=== PATIENT | male | born 1945 | race African-American/Black ===

== ENCOUNTER 2019-06-22 19:51 | Inpatient (IN) | payer MEDICARE, OTHER ==
[~2019-06-22] VITALS: Ht 182.9 cm; Wt 62.7 kg
[2019-06-22] MEDS ORDERED: ONDANSETRON HCL 4MG/2ML INJ IV STA (20:02)
[2019-06-22] MEDS ORDERED: SODIUM CHLORIDE 0.9% 1,000 ML IV ONE (20:02)
[2019-06-22] MEDS ORDERED: PIPERACILLIN/TAZ 3.375G PREMIX 50 ML IV ONE (20:15)
[2019-06-22 20:58] LABS: CLARITY URINE TURBID (CLEAR); KETONES URINE TRACE (NEGATIVE); LEUKOCYTE ESTERASE URINE 3+ (NEGATIVE); NITRITE URINE NEGATIVE (NEGATIVE); OCCULT BLOOD URINE 3+ (NEGATIVE); PROTEIN URINE 2+ (NEGATIVE); SPECIFIC GRAVITY URINE 1.013 (1.005-1.030)
[2019-06-22 20:59] LABS: COLOR URINE DARK YELLOW (YELLOW)
[2019-06-22] MEDS ORDERED: NOREPINEPHRINE 4 MG in DEXT 5% WATER 246 ML IV ONE (21:15)
[2019-06-22] MEDS ORDERED: NOREPINEPHRINE 4MG/250ML PMX 250 ML IV NR (21:30)
[2019-06-22 23:07] LABS: HEMATOCRIT. 39.1 % (42.0-52.0); HEMOGLOBIN. 13.1 g/dL (14.0-18.0); MEAN CORPUSCULAR HEMOGLOBIN 31.1 pg (28.0-32.0); MEAN CORPUSCULAR VOLUME 92.8 fL (80.0-94.0); MEAN PLATELET VOLUME 10.8 fl (7.4-10.4); RED BLOOD CELL COUNT 4.21 mill/uL (4.7-6.1); RED CELL DISTRIBUTION WIDTH 16.2 % (11.6-14.6)
[2019-06-22 23:14] LABS: CHLORIDE 105 mEq/L (98-107)
[2019-06-22 23:15] LABS: INR 1.2; PLATELET 45 x1000/uL (130-400); PROTHROMBIN TIME 12.4 sec (9.6-11.0)
[2019-06-22 23:29] LABS: PLATELET ESTIMATE MARKEDLY DECREASED
[2019-06-23] VITALS (81 sets, daily range): BP systolic 63–157; BP diastolic 19–124
[2019-06-23] MEDS ORDERED: ASPIRIN 325MG TABLET PO NR
[2019-06-23] MEDS ORDERED: SODIUM CHLORIDE 0.9% 250 ML IV ONE (00:15)
[2019-06-23] MEDS ORDERED: SODIUM CHLORIDE 0.9% 1,000 ML IV ONE (00:15)
[2019-06-23] MEDS ORDERED: NOREPINEPHRINE 8 MG in DEXT 5% WATER 242 ML IV PRN (03:30)
[2019-06-23] MEDS ORDERED: ACETAMINOPHEN 325MG TABLET PO PRN (03:30)
[2019-06-23] MEDS: SODIUM CHLORIDE 0.9% 1,000 ML IV SCH ×3 (04:44→21:00)
[2019-06-23 05:16] LABS: HEMATOCRIT. 37.3 % (42.0-52.0); HEMOGLOBIN. 12.5 g/dL (14.0-18.0); MEAN CORPUSCULAR HEMOGLOBIN 31.2 pg (28.0-32.0); MEAN CORPUSCULAR VOLUME 92.8 fL (80.0-94.0); MEAN PLATELET VOLUME 11.2 fl (7.4-10.4); RED BLOOD CELL COUNT 4.01 mill/uL (4.7-6.1); RED CELL DISTRIBUTION WIDTH 16.3 % (11.6-14.6)
[2019-06-23 05:32] LABS: PLATELET 40 x1000/uL (130-400)
[2019-06-23] MEDS: PIPERACILLIN/TAZOBACTAM 2.25 G in DEXTROSE 5% WATER 50 ML IV SCH ×3 (05:59→21:34)
[2019-06-23] MEDS ORDERED: PIPERACILLIN/TAZOBACTAM 2.25 G in DEXTROSE 5% WATER 50 ML IV SCH (06:00)
[2019-06-23 11:08] LABS: BG BASE EXCESS -7.9 mmol/L (-2.0-2.0); BG CARBOXYHEMOGLOBIN 0.5 % (0.5-1.5); BG DEOXYHEMOGLOBIN 6.5 % (0.0-5.0); BG FRACTION INSPIRED OXYGEN 21; BG HCO3 ACT 16.6 mmol/L (22.0-26.0); BG METHEMOGLOBIN 0.4 % (0.0-1.5); BG OXYGEN SATURATION 93.4 % (92.0-98.5); BG OXYHEMOGLOBIN 92.6 % (94.0-97.0); BG PCO2 31.4 mmHg (35.0-45.0); BG PH 7.342 (7.350-7.450); BG PO2 69.9 mmHg (75.0-100.0); BG SAMPLE SITE RIGHT BRACHIAL; BG TOTAL HEMOGLOBIN 12.9 g/dL (12.0-18.0); BG VENT MODE ROOM AIR
[2019-06-23] MEDS: PHENYLEPHRINE 40 MG in DEXT 5% WATER 246 ML IV PRN ×2 (11:29→18:12)
[2019-06-23] MEDS ORDERED: VANCOMYCIN 1500MG in DEXTROSE 5% WATER 250ML IV NR (11:30)
[2019-06-23 12:30] LABS: T4 FREE 1.11 ng/dL (0.76-1.46)
[2019-06-23 12:46] LABS: HEPATITIS B SURFACE ANTIGEN NEGATIVE
[2019-06-23 13:16] LABS: HEPATITIS A AB IGM NEGATIVE (NEGATIVE)
[2019-06-23 16:10] LABS: PLATELET ESTIMATE MARKEDLY DECREASED
[2019-06-23 17:59] LABS: D-DIMER 12.91 mg/L FEU (<0.50)
[2019-06-23] MEDS: CITRIC ACID/SODIUM CITRATE SOLN 15ML UDC PO SCH (18:11)
[2019-06-24] VITALS (98 sets, daily range): BP systolic 59–187; BP diastolic 26–117
[2019-06-24] MEDS: SODIUM CHLORIDE 0.9% 1,000 ML IV SCH ×3 (01:13→20:31)
[2019-06-24] MEDS: PHENYLEPHRINE 40 MG in DEXT 5% WATER 246 ML IV PRN ×2 (03:27→17:15)
[2019-06-24 05:03] LABS: HEMATOCRIT. 36.1 % (42.0-52.0); HEMOGLOBIN. 12.3 g/dL (14.0-18.0); MEAN CORPUSCULAR HEMOGLOBIN 31.1 pg (28.0-32.0); MEAN CORPUSCULAR VOLUME 91.4 fL (80.0-94.0); MEAN PLATELET VOLUME 11.4 fl (7.4-10.4); RED BLOOD CELL COUNT 3.95 mill/uL (4.7-6.1); RED CELL DISTRIBUTION WIDTH 16.6 % (11.6-14.6)
[2019-06-24 05:06] LABS: PLATELET 26 x1000/uL (130-400)
[2019-06-24] MEDS: PIPERACILLIN/TAZOBACTAM 2.25 G in DEXTROSE 5% WATER 50 ML IV SCH ×3 (05:38→21:40)
[2019-06-24 06:10] LABS: CREATINE KINASE MB FRACTION 11.4 ng/mL (0.5-3.6)
[2019-06-24 07:23] LABS: NUCLEATED RED BLOOD CELLS 1 /100 WBC
[2019-06-24 07:24] LABS: PLATELET ESTIMATE MARKEDLY DECREASED
[2019-06-24 08:08] LABS: HIV SCREEN 4G Non Reactive (Non Reactive)
[2019-06-24] MEDS: CITRIC ACID/SODIUM CITRATE SOLN 15ML UDC PO SCH ×3 (10:06→17:14)
[2019-06-24 12:55] LABS: CREATINE KINASE 2981 IU/L (39-308)
[2019-06-24] MEDS ORDERED: VANCOMYCIN 1 G PREMIX 200 ML IV SCH (13:00)
[2019-06-24 13:07] LABS: ANTI-NUCLEAR ANTIBODIES DIRECT Negative (Negative)
[2019-06-24] MEDS: MIDODRINE HCL 5MG TABLET PO SCH ×2 (15:36→17:14)
[2019-06-25] VITALS (93 sets, daily range): BP systolic 80–154; BP diastolic 23–100
[2019-06-25] MEDS: PHENYLEPHRINE 40 MG in DEXT 5% WATER 246 ML IV PRN (02:51)
[2019-06-25 05:09] LABS: BASOPHILS % 0.1 % (0.0-2.0); EOSINOPHILS % 1.8 % (0.0-5.0); HEMATOCRIT. 35.1 % (42.0-52.0); HEMOGLOBIN. 11.8 g/dL (14.0-18.0); LYMPHOCYTES % 8.8 % (20.0-50.0); MEAN CORPUSCULAR HEMOGLOBIN 31.1 pg (28.0-32.0); MEAN CORPUSCULAR VOLUME 92.1 fL (80.0-94.0); MEAN PLATELET VOLUME 11.5 fl (7.4-10.4); MONOCYTES % 4.7 % (2.0-8.0); NEUTROPHILS % 84.6 % (40.0-76.0); RED BLOOD CELL COUNT 3.81 mill/uL (4.7-6.1); RED CELL DISTRIBUTION WIDTH 16.8 % (11.6-14.6)
[2019-06-25] MEDS: PIPERACILLIN/TAZOBACTAM 2.25 G in DEXTROSE 5% WATER 50 ML IV SCH ×2 (05:21→13:00)
[2019-06-25] MEDS: SODIUM CHLORIDE 0.9% 1,000 ML IV SCH ×3 (05:21→22:26)
[2019-06-25 05:29] LABS: PHOSPHORUS 2.8 mg/dL (2.5-4.9)
[2019-06-25 05:53] LABS: PLATELET 28 x1000/uL (130-400)
[2019-06-25] MEDS: CITRIC ACID/SODIUM CITRATE SOLN 15ML UDC PO SCH ×3 (08:28→16:46)
[2019-06-25] MEDS: MIDODRINE HCL 5MG TABLET PO SCH ×3 (08:28→16:47)
[2019-06-25 10:06] LABS: COMPLEMENT C3 66 mg/dL (82-167)
[2019-06-25] MEDS: CEFAZOLIN 2,000 MG in DEXT 5% WATER 100 ML IV SCH (19:51)
[2019-06-26] VITALS (69 sets, daily range): BP systolic 78–139; BP diastolic 35–95
[2019-06-26] MEDS: SODIUM CHLORIDE 0.9% 1,000 ML IV SCH (04:59)
[2019-06-26 05:49] LABS: BASOPHILS % 0.1 % (0.0-2.0); EOSINOPHILS % 1.5 % (0.0-5.0); HEMATOCRIT. 33.9 % (42.0-52.0); HEMOGLOBIN. 11.4 g/dL (14.0-18.0); LYMPHOCYTES % 9.4 % (20.0-50.0); MEAN PLATELET VOLUME 11.1 fl (7.4-10.4); MONOCYTES % 3.7 % (2.0-8.0); NEUTROPHILS % 85.3 % (40.0-76.0); RED BLOOD CELL COUNT 3.69 mill/uL (4.7-6.1)
[2019-06-26 06:10] LABS: PLATELET 46 x1000/uL (130-400)
[2019-06-26] MEDS: CEFAZOLIN 2,000 MG in DEXT 5% WATER 100 ML IV SCH ×2 (09:47→19:46)
[2019-06-26] MEDS: MIDODRINE HCL 5MG TABLET PO SCH ×3 (09:47→18:02)
[2019-06-26] MEDS: DEXTROSE 5% WATER 1,000 ML IV SCH (09:48)
[2019-06-27] VITALS (18 sets, daily range): BP systolic 80–130; BP diastolic 42–70
[2019-06-27] MEDS: DEXTROSE 5% WATER 1,000 ML IV SCH (04:00)
[2019-06-27 05:45] LABS: BASOPHILS % 0.2 % (0.0-2.0); EOSINOPHILS % 2.1 % (0.0-5.0); HEMATOCRIT. 33.9 % (42.0-52.0); HEMOGLOBIN. 11.4 g/dL (14.0-18.0); LYMPHOCYTES % 10.8 % (20.0-50.0); MEAN CORPUSCULAR VOLUME 92.5 fL (80.0-94.0); MEAN PLATELET VOLUME 11.2 fl (7.4-10.4); MONOCYTES % 4.2 % (2.0-8.0); NEUTROPHILS % 82.7 % (40.0-76.0); PLATELET 68 x1000/uL (130-400); RED BLOOD CELL COUNT 3.67 mill/uL (4.7-6.1); RED CELL DISTRIBUTION WIDTH 16.4 % (11.6-14.6)
[2019-06-27] MEDS: CEFAZOLIN 2,000 MG in DEXT 5% WATER 100 ML IV SCH (09:30)
[2019-06-27] MEDS: MIDODRINE HCL 5MG TABLET PO SCH ×2 (09:48→13:33)
== END 2019-06-27 19:45 | disposition home health service (06) | DRG 871 ==
LOC: ER 19:51 → EDBEDREQ 23:43 → EDBEDREQTM 23:43 → EDBEDREQSVC 23:43 → ENRESERV 06-23 01:54 → MICUNO 06-23 02:33 → 5EST 06-27 05:40
PROVIDERS: ADMIT Internal Medicine; ATTEND Internal Medicine
DX: A41.51 Sepsis due to Escherichia coli [E. coli] (principal); G93.41 Metabolic encephalopathy; R65.21 Severe sepsis with septic shock; J96.00 Acute respiratory failure, unspecified whether with hypoxia or hypercapnia; I21.4 Non-ST elevation (NSTEMI) myocardial infarction; E43 Unspecified severe protein-calorie malnutrition; N17.0 Acute kidney failure with tubular necrosis; G82.50 Quadriplegia, unspecified; N39.0 Urinary tract infection, site not specified; I42.9 Cardiomyopathy, unspecified; Z68.1 Body mass index [BMI] 19.9 or less, adult; E87.0 Hyperosmolality and hypernatremia; E87.2 Acidosis; M62.82 Rhabdomyolysis; R47.01 Aphasia; D69.6 Thrombocytopenia, unspecified; R74.0 Nonspecific elevation of levels of transaminase and lactic acid dehydrogenase [LDH]; D64.9 Anemia, unspecified; E86.9 Volume depletion, unspecified; I95.1 Orthostatic hypotension; R13.10 Dysphagia, unspecified; N18.9 Chronic kidney disease, unspecified; I12.9 Hypertensive chronic kidney disease with stage 1 through stage 4 chronic kidney disease, or unspecified chronic kidney disease; R47.1 Dysarthria and anarthria; Z86.73 Personal history of transient ischemic attack (TIA), and cerebral infarction without residual deficits; Z99.3 Dependence on wheelchair
CPT/HCPCS: 36415; 36600; 71045; 76700; 80048; 80061; 80202; 81003; 82375; 82550; 82553; 82805; 82962; 83036; 83605; 83735; 83880; 84100; 84145; 84439; 84443; 84484; 85362; 85379; 85384; 86038; 86160; 86705; 86709; 86803; 87077; 87186; 87340; 87389; 92523; 92610; 93005; 93306; 93970; 96374; 97162; 99285; J0690; J2370; J2405; J2543; J3370; J3490; J7030; J7050; J7060; J7070

== ENCOUNTER 2019-07-03 00:07 | Inpatient (IN) | payer MEDICARE, MEDICAID ==
[~2019-07-03] VITALS: Ht 172.7 cm; Wt 67.8 kg
[2019-07-03] MEDS ORDERED: SODIUM CHLORIDE 0.9% 1000ML BAG (SEPSIS BOLUS) IV ONE (00:30)
[2019-07-03] MEDS ORDERED: CEFTRIAXONE 1 G PREMIX 50 ML IV ONE (00:30)
[2019-07-03 00:45] LABS: HEMATOCRIT. 28.1 % (42.0-52.0); HEMOGLOBIN. 9.5 g/dL (14.0-18.0); MEAN CORPUSCULAR HEMOGLOBIN 30.5 pg (28.0-32.0); MEAN CORPUSCULAR VOLUME 90.3 fL (80.0-94.0); MEAN PLATELET VOLUME 9.9 fl (7.4-10.4)
[2019-07-03 00:54] LABS: CHLORIDE 110 mEq/L (98-107)
[2019-07-03 01:08] LABS: INR 1.3; PROTHROMBIN TIME 13.3 sec (9.6-11.0)
[2019-07-03 01:23] LABS: CLARITY URINE CLEAR (CLEAR); COLOR URINE YELLOW (YELLOW); KETONES URINE NEGATIVE (NEGATIVE); LEUKOCYTE ESTERASE URINE 2+ (NEGATIVE); NITRITE URINE NEGATIVE (NEGATIVE); OCCULT BLOOD URINE 3+ (NEGATIVE); PH URINE 5.5 (4.5-8.0); PROTEIN URINE 1+ (NEGATIVE); UROBILINOGEN URINE 0.2 E.U./dL (0.2-1.0)
[2019-07-03 02:47] LABS: PLATELET ESTIMATE NORMAL
[2019-07-03 02:49] LABS: PLATELET 278 x1000/uL (130-400)
[2019-07-03] MEDS ORDERED: DEXT 5%/0.45% NACL 1000ML 1,000 ML IV SCH (14:42)
[2019-07-03] MEDS ORDERED: ONDANSETRON HCL 4MG/2ML INJ IV PRN (14:45)
[2019-07-03] MEDS ORDERED: CLONIDINE 0.1MG TABLET PO PRN (14:45)
[2019-07-03] MEDS ORDERED: HYDROCODONE/ACETAMINOPHEN 5/325MG TABLET PO PRN (14:45)
[2019-07-03] MEDS ORDERED: ACETAMINOPHEN 325MG TABLET PO PRN (14:45)
[2019-07-03] MEDS ORDERED: CEFTRIAXONE 1 G PREMIX 50 ML IV SCH (14:45)
[2019-07-03] MEDS ORDERED: GUAIFENESIN 200MG/10ML SUGAR FREE UDC PO PRN (14:45)
[2019-07-03] MEDS ORDERED: ENOXAPARIN 40MG/0.4ML SYR SUBCUT SCH ×2 (14:45→21:30)
[2019-07-03] MEDS ORDERED: DOCUSATE SODIUM 100MG CAPSULE PO PRN (14:45)
[2019-07-03] MEDS ORDERED: CITRIC ACID/SODIUM CITRATE SOLN 30ML UDC PO SCH (17:00)
[2019-07-03 17:08] LABS: BG BASE EXCESS -7.5 mmol/L (-2.0-2.0); BG CARBOXYHEMOGLOBIN 0.1 % (0.5-1.5); BG DEOXYHEMOGLOBIN 4.9 % (0.0-5.0); BG FRACTION INSPIRED OXYGEN 21; BG HCO3 ACT 16.4 mmol/L (22.0-26.0); BG METHEMOGLOBIN 0.3 % (0.0-1.5); BG OXYGEN SATURATION 95.1 % (92.0-98.5); BG OXYHEMOGLOBIN 94.7 % (94.0-97.0); BG PCO2 27.9 mmHg (35.0-45.0); BG PH 7.388 (7.350-7.450); BG PO2 82.3 mmHg (75.0-100.0); BG SAMPLE SITE RIGHT BRACHIAL; BG TOTAL HEMOGLOBIN 9.1 g/dL (12.0-18.0); BG VENT MODE ROOM AIR
[2019-07-03 22:00] VITALS: BP 102/51
[2019-07-04] VITALS: BP 101/49
[2019-07-04] MEDS ORDERED: VANCOMYCIN 1 G PREMIX 200 ML IV SCH
[2019-07-04] MEDS: CITRIC ACID/SODIUM CITRATE SOLN 30ML UDC PO SCH ×4 (00:30→17:19)
[2019-07-04] MEDS ORDERED: CEFTRIAXONE 1 G PREMIX 50 ML IV SCH (02:00)
[2019-07-04 04:00] VITALS: BP 116/59
[2019-07-04 07:24] LABS: BASOPHILS % 0.3 % (0.0-2.0); EOSINOPHILS % 1.7 % (0.0-5.0); HEMOGLOBIN. 9.1 g/dL (14.0-18.0); LYMPHOCYTES % 10.6 % (20.0-50.0); MEAN CORPUSCULAR HEMOGLOBIN 31.7 pg (28.0-32.0); MEAN CORPUSCULAR VOLUME 90.2 fL (80.0-94.0); NEUTROPHILS % 79.4 % (40.0-76.0); PLATELET 291 x1000/uL (130-400); RED BLOOD CELL COUNT 2.89 mill/uL (4.7-6.1); RED CELL DISTRIBUTION WIDTH 15.9 % (11.6-14.6)
[2019-07-04 07:53] LABS: CHLORIDE 121 mEq/L (98-107)
[2019-07-04 08:00] VITALS: BP 117/62
[2019-07-04 08:01] LABS: PHOSPHORUS 3.4 mg/dL (2.5-4.9)
[2019-07-04 08:03] LABS: CREATINE KINASE 562 IU/L (39-308)
[2019-07-04] MEDS: ASPIRIN 81MG EC TABLET PO SCH (08:51)
[2019-07-04] MEDS ORDERED: ASPIRIN 81MG EC TABLET PO SCH (09:00)
[2019-07-04] MEDS ORDERED: ENOXAPARIN 30MG/0.3ML SYR SUBCUT SCH (09:00)
[2019-07-04] MEDS ORDERED: ENOXAPARIN 40MG/0.4ML SYR SUBCUT NR (11:00)
[2019-07-04 12:00] VITALS: BP 112/57
[2019-07-04] MEDS ORDERED: VANCOMYCIN 750 MG PREMIX 150 ML IV SCH (15:00)
[2019-07-04 16:00] VITALS: BP 123/66
[2019-07-04] MEDS: DEXT 5%/0.2% NACL 1,000 ML IV SCH (17:20)
[2019-07-04 20:00] VITALS: BP 103/77
[2019-07-05] VITALS: BP 131/61
[2019-07-05] MEDS ORDERED: CEFTRIAXONE 1 G PREMIX 50 ML IV SCH (01:00)
[2019-07-05] MEDS: DEXT 5%/0.2% NACL 1,000 ML IV SCH ×2 (01:50→15:40)
[2019-07-05 04:00] VITALS: BP 151/67
[2019-07-05 06:43] LABS: BASOPHILS % 0.9 % (0.0-2.0); EOSINOPHILS % 1.8 % (0.0-5.0); HEMATOCRIT. 25.7 % (42.0-52.0); HEMOGLOBIN. 8.9 g/dL (14.0-18.0); LYMPHOCYTES % 18.7 % (20.0-50.0); MEAN CORPUSCULAR HEMOGLOBIN 31.5 pg (28.0-32.0); MEAN CORPUSCULAR VOLUME 90.9 fL (80.0-94.0); MEAN PLATELET VOLUME 9.8 fl (7.4-10.4); MONOCYTES % 9.1 % (2.0-8.0); NEUTROPHILS % 69.5 % (40.0-76.0); PLATELET 289 x1000/uL (130-400); RED BLOOD CELL COUNT 2.83 mill/uL (4.7-6.1); RED CELL DISTRIBUTION WIDTH 16.5 % (11.6-14.6)
[2019-07-05 08:00] VITALS: BP 154/69
[2019-07-05] MEDS: ASPIRIN 81MG EC TABLET PO SCH (09:36)
[2019-07-05] MEDS: CITRIC ACID/SODIUM CITRATE SOLN 30ML UDC PO SCH ×2 (09:36→14:02)
[2019-07-05 09:52] LABS: PHOSPHORUS 2.4 mg/dL (2.5-4.9)
[2019-07-05] MEDS ORDERED: ENOXAPARIN 80MG/0.8ML SYR SUBCUT SCH ×2 (11:00→22:00)
[2019-07-05] MEDS ORDERED: POTASSIUM PHOS,M-BASIC-D-BASIC 15 MMOL in DEXT 5% WATER 245 ML IV ONE (12:30)
[2019-07-05 15:22] VITALS: BP 113/65
[2019-07-05] MEDS ORDERED: VANCOMYCIN 1 G PREMIX 200 ML IV SCH (21:00)
== END 2019-07-05 16:40 | disposition home health service (06) | DRG 871 ==
LOC: ER 00:07 → 5WST 06:28 → EDBEDREQ 06:30 → EDBEDREQTM 06:30 → EDBEDREQSVC 06:30 → SUPCPDRO 14:41 → ENRESERV 20:24 → ER 21:20
PROVIDERS: ADMIT Internal Medicine; ATTEND Internal Medicine
DX: A41.9 Sepsis, unspecified organism (principal); E43 Unspecified severe protein-calorie malnutrition; J96.90 Respiratory failure, unspecified, unspecified whether with hypoxia or hypercapnia; I21.4 Non-ST elevation (NSTEMI) myocardial infarction; I13.0 Hypertensive heart and chronic kidney disease with heart failure and stage 1 through stage 4 chronic kidney disease, or unspecified chronic kidney disease; N13.8 Other obstructive and reflux uropathy; N17.9 Acute kidney failure, unspecified; N39.0 Urinary tract infection, site not specified; R57.9 Shock, unspecified; I82.411 Acute embolism and thrombosis of right femoral vein; D63.8 Anemia in other chronic diseases classified elsewhere; E11.22 Type 2 diabetes mellitus with diabetic chronic kidney disease; E78.5 Hyperlipidemia, unspecified; I25.10 Atherosclerotic heart disease of native coronary artery without angina pectoris; I50.9 Heart failure, unspecified; M24.50 Contracture, unspecified joint; N18.9 Chronic kidney disease, unspecified; N40.1 Benign prostatic hyperplasia with lower urinary tract symptoms; R65.20 Severe sepsis without septic shock; Z86.73 Personal history of transient ischemic attack (TIA), and cerebral infarction without residual deficits; Z82.49 Family history of ischemic heart disease and other diseases of the circulatory system; Z87.891 Personal history of nicotine dependence; Z68.22 Body mass index [BMI] 22.0-22.9, adult
CPT/HCPCS: 36415; 36600; 71045; 74176; 80048; 80202; 81003; 82375; 82550; 82805; 82962; 83036; 83605; 83735; 84100; 84145; 84484; 92610; 93005; 93970; 99285; J0696; J1650; J3370; J3490; J7030; J7060

== ENCOUNTER 2019-07-31 05:24 | Emergency (ER) | payer MEDICARE, MEDICAID ==
[~2019-07-31] VITALS: Ht 175.3 cm; Wt 76.0 kg
[2019-07-31 08:06] LABS: BASOPHILS % 0.6 % (0.0-2.0); EOSINOPHILS % 0.7 % (0.0-5.0); HEMATOCRIT. 32.2 % (42.0-52.0); HEMOGLOBIN. 10.6 g/dL (14.0-18.0); LYMPHOCYTES % 15.4 % (20.0-50.0); MEAN CORPUSCULAR HEMOGLOBIN 30.8 pg (28.0-32.0); MEAN CORPUSCULAR VOLUME 93.6 fL (80.0-94.0); MEAN PLATELET VOLUME 9.7 fl (7.4-10.4); MONOCYTES % 4.4 % (2.0-8.0); NEUTROPHILS % 78.9 % (40.0-76.0); PLATELET 185 x1000/uL (130-400); RED BLOOD CELL COUNT 3.45 mill/uL (4.7-6.1)
[2019-07-31 08:15] LABS: CHLORIDE 110 mEq/L (98-107)
[2019-07-31 08:23] LABS: ETHANOL BLOOD < 10 mg/dL
[2019-07-31 11:00] VITALS: BP 153/78
== END 2019-07-31 11:15 | disposition home or self-care (01) ==
LOC: ER 05:24
DX: R33.9 Retention of urine, unspecified (principal); I10 Essential (primary) hypertension; Z86.73 Personal history of transient ischemic attack (TIA), and cerebral infarction without residual deficits
CPT/HCPCS: 36415; 80307; 80320; 80329; 99283; A4315; G0480